=== PATIENT | male | born 1995 | race Caucasian/White ===

== ENCOUNTER 2018-01-23 01:07 | Emergency (ER) | payer BC ==
[2018-01-23] MEDS ORDERED: AMOXICILLIN/CLAVULANATE POT 875/125 MG TAB PO ONE (02:47)
--- NOTE | 2018-01-23 02:47 | EDPHY ---
H & P Stated Complaint: R thumb bit by dog Time Seen by Provider: 01/23/18 02:31 HPI/ROS: HPI: The patient presents with dog bite to right thumb which occurred just prior to arrival. The dog has had its vaccines. The dog bit his right thumb and he had bleeding immediately which is now mostly subsided. It he denies any numbness or tingling of his hand. He has good movement of his thumb. His tetanus vaccine is up-to-date. REVIEW OF SYSTEMS Constitutional: No fever, no chills. Skin: No rashes. Neurological: No headache. PMHx: Healthy TRAUMA PHYSICAL General Appearance: Alert, no distress Head: Atraumatic Eyes: Pupils equal, round, reactive Respiratory: Breathing comfortably Skin: No lacerations, No abrasion Extremities: Right thumb with nail bed laceration which is longitudinal, about 1 cm, he has full range of motion of the thumb Neurological: A&Ox3, GCS=15 Source: Patient Exam Limitations: No limitations - Personal History Current Tetanus/Diphtheria Vaccine: Yes Current Tetanus Diphtheria and Acellular Pertussis (TDAP): Yes - Medical/Surgical History Hx Asthma: No Hx Chronic Respiratory Disease: No Hx Diabetes: No Hx Cardiac Disease: No Hx Renal Disease: No Hx Cirrhosis: No Hx Alcoholism: No Hx HIV/AIDS: No Hx Splenectomy or Spleen Trauma: No - Social History Smoking Status: Never smoked Constitutional: Initial Vital Signs Temperature (C) 36.6 C 01/23/18 01:10 Heart Rate 100 01/23/18 01:10 Respiratory Rate 16 01/23/18 01:10 Blood Pressure 134/81 H 01/23/18 01:10 O2 Sat (%) 91 L 01/23/18 01:10 O2 Delivery Mode Room Air Allergies/Adverse Reactions: No Known Allergies Allergy (Unverified 01/23/18 01:12) Home Medications: Medication Instructions Recorded Amoxicillin/Clavulanate Pot 875 mg PO BID #14 tab 01/23/18 [Augmentin 875 MG TAB (*)] Medical Decision Making Differential Diagnosis: 22-year-old male who presents with dog bite to right thumb which occurred just prior to arrival. Dog has had vaccines. Patient's tetanus vaccine is up to decreased. Patient is neurovascularly intact in his right thumb though he does have a nail bed injury. I will not repair this given that risk of infection from dog bite. Plan for Augmentin, antibiotic ointment and frequent cleansing of the wound. We have discussed return precautions for infection. I doubt any fracture. - Data Points Medications Given: Discontinued Medications Amoxicillin/Clavulanate Potassium (Augmentin 875mg) 875 mg PO EDNOW ONE PRN Reason: Protocol Stop: 01/23/18 02:48 Last Admin: 01/23/18 02:51 Dose: 875 mg Departure - Departure Disposition: Home, Routine, Self-Care Clinical Impression: Dog bite, Nailbed laceration, finger Condition: Good Instructions: Animal Bite (ED) Additional Instructions: I recommend you take the antibiotic as prescribed. Use antibiotic ointment and a Band-Aid twice a day. It is okay to get your hand wet in the shower when you wash her hands. You need to monitor your hand for infection and return for any redness, warmth, swelling, drainage, increased pain. Your nail may fall off because of this injury. I have listed the name of the on-call hand surgeon that you can follow up with if you would like. Referrals: Partha Michael MD [Medical Doctor] - As per Instructions Prescriptions: Amoxicillin/Clavulanate Pot [Augmentin 875 MG TAB (*)] 875 mg PO BID #14 tab
[2018-01-23 02:57] VITALS: BP 132/76
== END 2018-01-23 02:57 | disposition home or self-care (01) ==
DX: S61.111A Laceration without foreign body of right thumb with damage to nail, initial encounter (principal); W54.0XXA Bitten by dog, initial encounter